=== PATIENT | male | born 1995 | race Caucasian/White ===

== ENCOUNTER 2019-10-04 14:12 | Emergency (ER) | payer MEDICAID, SELFPAY ==
[2019-10-04 14:14] VITALS: BP 138/68; PULSE 89; RESP 16; TEMP 36.6; O2SAT 98; BMI 25.2
--- NOTE | 2019-10-04 14:40 | ED.VIS.GEN ---
History of Present Illness Chief Complaint: General Illness Informant: Patient Onset: Days - 3 Narrative: Presents with 3 to 4-day history of cough congestion and rhinorrhea, his cough is not becoming slightly productive. He is a smoker. He has no fever chills. He has no abdominal pain. He is worried about bronchitis Past Medical History - Allergies and Home Meds Allergies/Adverse Reactions: Allergies No Known Allergies Allergy (Verified 10/04/19 14:16) Primary Care Physician: NOT,DEFINED [Primary Care Provider] - Past Medical History: None Smoking Status: Current every day smoker Review of Systems General: Denies: Fever Eyes: Denies: Visual changes - bilaterally ENT: Reports: Rhinorrhea, Sore throat Cardiovascular: Denies: Chest pain Respiratory: Reports: Cough, Sputum. Denies: Dyspnea Gastrointestinal: Reports: Abdominal pain Genitourinary: Denies: Dysuria Musculoskeletal: Denies: Myalgias Skin: Denies: Rash Neurological: Denies: Weakness Physical Exam Vital Signs/Narrative: Vital Signs Temp Pulse Resp BP Pulse Ox 10/04/19 14:14 97.8 F 89 16 138/68 H 98 General: Well nourished, Well developed Head: Normocephalic Eyes: Negative for: Pale conjunctiva ENT: Moist mucous membranes, - - He has rhinorrhea, swollen nasal turbinates and postnasal drip but no pharyngeal erythema or exudate Neck: Supple Cardiovascular: Regular rate, Regular rhythm Abdomen: Soft, Nontender Back: Nontender, Normal Inspection Extremities: Nontender, No edema Skin: Normal color Neurological: Alert Psychological: Normal affect Diagnostic/Tx/Re-eval - Medical Decision Making She has clear lungs, this all upper respiratory. He does not meet criteria for antibiotics, he may have early bronchitis which we will treat symptomatically. Discharge stable condition ED Disposition - Plan for ED Patient: Disposition: Home or Assisted Living Diagnosis: Bronchitis Instructions: Acute Bronchitis Prescriptions: Guaifenesin/Pseudoephedrne HCl [Mucinex D ER 600-60 mg Tablet] 1 ea PO BID #6 tab.er.12h Prescription Printed Referrals: NOT,DEFINED [Primary Care Provider] - 3-5 Days
[2019-10-04 15:12] VITALS: PULSE 81; RESP 17; O2SAT 99
== END 2019-10-04 15:13 | disposition home or self-care (01) ==
PROVIDERS: Emergency Provider Emergency Medicine
DX: J20.9 Acute bronchitis, unspecified (principal); R10.9 Unspecified abdominal pain; F17.200 Nicotine dependence, unspecified, uncomplicated
CPT/HCPCS: 99282

== ENCOUNTER 2019-11-22 13:04 | Emergency (ER) | payer MEDICAID, SELFPAY ==
[2019-11-22 13:04] VITALS: BP 131/82; PULSE 66; RESP 16; TEMP 36.8; O2SAT 98; BMI 22.3
[2019-11-22 13:57] LABS: Absolute Lymphocyte Count 1.88 X10^3/uL (0.83-4.51); Absolute Neutrophil Count 4.8 X10^3/uL (2.0-7.7); Basophil# 0.05 X10^3/uL; Basophil% 0.7 % (0-1); Eosinophil# 0.19 X10^3/uL; Eosinophils% 2.5 % (0-5); Hematocrit 45.6 % (40-54); Hemoglobin 15.4 g/dL (13.0-16.5); Lymphocyte # 1.88 X10^3/ul (4.0); Lymphocyte % 24.9 % (19-41); Mean Corp Hgb Conc 33.8 g/dL (32-36); Mean Corpuscular Hgb 32.2 pg (27.0-32.0); Mean Corpuscular Volume 95.4 fL (80-94); Mean Platelet Vol. 9.5 fl (6.2-12.0); Monocyte# 0.59 X10^3/uL; Monocyte% 7.8 % (0-10); NRBC Flagged by Analyzer 0 % (0-5); Neutrophil # 4.79 X10^3/uL (2.7-7.7); Neutrophil % 63.6 % (47-70); Platelet Count 332 K/mm3 (150-450); RBC Distribution Width CV 12.2 % (11.6-14.6); RBC Distribution Width SD 43.3 fl (35.1-43.9); Red Blood Count 4.78 M/mm3 (4.6-6.2); White Blood Count 7.5 K/mm3 (4.4-11.0)
[2019-11-22 14:09] LABS: ALB/GLOB Ratio 1.2 RATIO (0.9-2.4); AST(SGOT) 15 U/L (15-37); Alanine Aminotransfer ALT/SGPT 21 U/L (16-61); Alkaline Phosphatase 88 U/L (45-117); Anion Gap 0 (5-15); BUN 14 mg/dL (7-18); BUN/Creat Ratio 13.2 RATIO (10-20); Calcium,Total 8.7 mg/dL (8.5-10.1); Chloride 109 mmol/L (98-107); Creatinine, Serum 1.06 mg/dL (0.70-1.30); EST Glomerular Filtration Rate 91 mL/min (>60); Est Glom Filt Rate - Afr Amer 110 mL/min (>60); Estimated Creatinine Clearance 110.35 ml/min; Globulin 3.3 g/dL (2.2-4.2); Glucose 87 mg/dL (74-106); Potassium 4.3 mmol/L (3.5-5.1); Protein, Total 7.3 g/dL (6.4-8.2); Sodium Level 140 mmol/L (136-145)
[2019-11-22 14:10] LABS: Amphetamine Urine VISTA NEGATIVE (<1000 ng/mL); Barbiturate Urine VISTA NEGATIVE (< 200 ng/mL); Benzodiazepine Urine VISTA NEGATIVE (< 200 ng/mL); Cocaine Urine VISTA NEGATIVE (< 300 ng/mL); Ecstacy Urine VISTA NEGATIVE (< 500 ng/mL); Methadone Urine VISTA NEGATIVE (< 300 ng/mL); PCP Urine VISTA NEGATIVE (< 25 ng/mL); THC Urine VISTA NEGATIVE (< 50 ng/mL); Vista UDS pH Range 5
--- NOTE | 2019-11-22 14:24 | NURSING ---
CALLED [facility], TALKED TO ORLY. HE WILL CALL US BACK
--- NOTE | 2019-11-22 14:28 | NURSING ---
SOMEONE FROM [facility] WILL BE OVER TO ACCESS PATIENT
[2019-11-22 15:15] VITALS: RESP 14
--- NOTE | 2019-11-22 15:20 | ED.DCSUM_ITS ---
- ER Visit Summary Date of Service: 11/22/19 Chief Complaint: [Depression and suicidal ideation] History of Present Illness: The patient is a 24 M presents to the emergency department from group home with complaint of depression. Patient was arrested yesterday for alleged assault. Patient yesterday apparently attempted to kill himself by hanging himself with a [place] tree lights however he had a hard time knotting them. Patient does have history of depression however he ran out of his medications about 3 or 4 days ago. Patient's last admission to psychiatric facility it was about 3 to 4 months ago. Patient states that he is chronically depressed. He denies any auditory or visual hallucinations. Patient was brought in by police and pink slipped. Patient was evaluated at the group home by crisis.] Physical Examination: [HEENT-PERRLA, EOMI. Cranial nerves II through XII grossl y intact. TMs clear. Mucous membranes moist. No adenopathy. Cardiovascular-regular rate and rhythm without murmur or ectopy Lungs-clear to auscultation, chest wall stable without crepitus or subcu emphysema Abdomen-normoactive bowel sounds, soft, nontender, no rebound or rigidity, no peritoneal signs. Extremities-intact ?4, normal range of motion, normal pulses, atraumatic] Test Results: [CBC with it was normal. Chemistries unremarkable. Toxicology screen was negative alcohol screen was negative. Signs were normal.] Emergency Department Course and Treatment: [Patient was seen by crisis in the department.] Treatment Plan: [pLan will be to arrange transfer to psychiatric facility.] Disposition: [Transfer to psychiatric facility] Impression: [Depression Suicidal ideation] This note was generated with [employer] dictation software. It may contain incorrect words, spelling, and punctuation that were not noted in review of the chart prior to signing ED Disposition - Plan for ED Patient: Referrals: Care Physician,No Primary [Primary Care Provider] -
[2019-11-22 16:53] VITALS: BP 125/72; PULSE 56; RESP 16; O2SAT 100
[2019-11-22 16:54] VITALS: BP 125/72; PULSE 56; RESP 16; O2SAT 100
== END 2019-11-22 17:00 ==
PROVIDERS: Emergency Provider Emergency Medicine
DX: F32.9 Major depressive disorder, single episode, unspecified (principal); R45.851 Suicidal ideations; Z72.0 Tobacco use; Z79.899 Other long term (current) drug therapy
CPT/HCPCS: 80053; 80307; 80320; 85025; 99285; G0480

== ENCOUNTER 2020-02-29 17:26 | Emergency (ER) | payer MEDICAID, SELFPAY ==
[2020-02-29 17:26] VITALS: BP 136/67; PULSE 62; RESP 16; TEMP 36.4; O2SAT 97; BMI 24.5
[2020-02-29 18:10] LABS: Absolute Lymphocyte Count 1.82 X10^3/uL (0.83-4.51); Absolute Neutrophil Count 4.1 X10^3/uL (2.0-7.7); Basophil# 0.03 X10^3/uL; Basophil% 0.5 % (0-1); Eosinophil# 0.05 X10^3/uL; Eosinophils% 0.8 % (0-5); Hematocrit 43.3 % (40-54); Hemoglobin 14.6 g/dL (13.0-16.5); Lymphocyte # 1.82 X10^3/ul (4.0); Lymphocyte % 27.5 % (19-41); Mean Corp Hgb Conc 33.7 g/dL (32-36); Mean Corpuscular Hgb 31.6 pg (27.0-32.0); Mean Corpuscular Volume 93.7 fL (80-94); Mean Platelet Vol. 9.5 fl (6.2-12.0); Monocyte# 0.56 X10^3/uL; Monocyte% 8.5 % (0-10); NRBC Flagged by Analyzer 0 % (0-5); Neutrophil # 4.12 X10^3/uL (2.7-7.7); Neutrophil % 62.2 % (47-70); Platelet Count 334 K/mm3 (150-450); RBC Distribution Width CV 12.7 % (11.6-14.6); RBC Distribution Width SD 43.9 fl (35.1-43.9); Red Blood Count 4.62 M/mm3 (4.6-6.2); White Blood Count 6.6 K/mm3 (4.4-11.0)
[2020-02-29 18:18] LABS: Anion Gap 7 (5-15); BUN 14 mg/dL (7-18); BUN/Creat Ratio 13.5 RATIO (10-20); Calcium,Total 8.7 mg/dL (8.5-10.1); Chloride 103 mmol/L (98-107); Creatinine, Serum 1.04 mg/dL (0.70-1.30); EST Glomerular Filtration Rate 93 mL/min (>60); Est Glom Filt Rate - Afr Amer 112 mL/min (>60); Estimated Creatinine Clearance 116.65 ml/min; Glucose 103 mg/dL (74-106); Potassium 3.6 mmol/L (3.5-5.1); Sodium Level 135 mmol/L (136-145)
[2020-02-29 18:32] LABS: Amphetamine Urine VISTA NEGATIVE (<1000 ng/mL); Barbiturate Urine VISTA NEGATIVE (< 200 ng/mL); Benzodiazepine Urine VISTA NEGATIVE (< 200 ng/mL); Cocaine Urine VISTA NEGATIVE (< 300 ng/mL); Ecstacy Urine VISTA NEGATIVE (< 500 ng/mL); Methadone Urine VISTA NEGATIVE (< 300 ng/mL); PCP Urine VISTA NEGATIVE (< 25 ng/mL); THC Urine VISTA POSITIVE (< 50 ng/mL); Vista UDS pH Range 6
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
--- NOTE | 2020-02-29 18:45 | ED.VISSUMM ---
- ER Visit Summary Date of Service: 02/29/20 Chief Complaint: Depression with suicidal ideation History of Present Illness: The patient is a 24 M history of being more depressed. Patient is a history of bipolar disorder. States he is contemplating suicide. He is considering hanging himself. He has had at least 2 prior attempts in the past with hanging himself. He also had another prior attempt with an overdose. He denies any actual attempt this time. He does go to the counseling center. Physical Examination: Young male vital signs stable afebrile. Currently calm and collected. Cooperative with exam. He is not acting out. HEENT exam unremarkable. Pupils are unreactive light. Neck nontender. No signs of trauma. Lungs clear to auscultation bilaterally. Heart regular rhythm no murmur. Abdomen soft nontender normal bowel sounds no peritoneal signs. Extremities moves all 4. Calves nontender no edema. No signs of track mir or injuries to his upper or lower extremities. Back nontender. Neurologically is awake alert with no focal motor deficits. Test Results: CBC normal. White count of 6. Chemistries unremarkable gap of 7. Tox screen positive for cannabis only. Alcohol at 69 he is not intoxicated. Emergency Department Course and Treatment: Young male with bipolar disorder with increasing depression and suicidal ideation. He has had prior attempts. I had him also evaluated by the social media director who agrees that he needs admission. She is working on placement. Treatment Plan: [] Disposition: Placement of psychiatric facility. Impression: Acute on chronic depression Suicidal ideation with prior attempts Acute exacerbation of bipolar disorder This note was generated with [employer] dictation software. It may contain incorrect words, spelling, and punctuation that were not noted in review of the chart prior to signing ED Disposition - Plan for ED Patient: Referrals: Care Physician,No Primary [Primary Care Provider] -
--- NOTE | 2020-02-29 19:17 | CM.ED ---
Social Work Telephone call to Nikia Ferguson, Intake. Referral made. There are open beds and they do accept patient insurance. Clinical information faxed, pending review. Janny CHOW, GEO
[2020-02-29 20:00] VITALS: RESP 18
--- NOTE | 2020-02-29 20:24 | CM.ED ---
Social Work Telephone call to Quiana Mason. Quiana confirming to have received referral and the the referral is currently under review. Janny Nunn MSW, GEO
[2020-02-29 21:00] VITALS: RESP 16
--- NOTE | 2020-02-29 21:16 | CM.ED ---
[facility] Admitting Doctor: Dr. Toth. Nurse to Nurse report to call: [phone]. Patient to admit to [address] [place] [address]. Updated patient, medical team, and patient friend Daysi on plan. [place] slip faxed. Janny CHOW, AJIT
[2020-02-29 21:53] VITALS: BP 134/72; PULSE 65; RESP 18
--- NOTE | 2020-03-01 00:43 | NURSING ---
pt's home medication bottles found on unit. kei @ [facility] was notified. she will ask pt for contact information of someone who could come to [facility] to pick them up. if he ins unable to provide contact information, she will advise him to pick the medications up when he is discharged from [facility].
== END 2020-02-29 22:27 ==
PROVIDERS: Emergency Provider Emergency Medicine
DX: F31.9 Bipolar disorder, unspecified (principal); R45.851 Suicidal ideations; Z91.5 Personal history of self-harm; Z72.0 Tobacco use; Z79.899 Other long term (current) drug therapy
CPT/HCPCS: 80048; 80307; 80320; 85025; 99283; G0480

== ENCOUNTER 2020-03-16 15:53 | Emergency (ER) | payer MEDICAID, SELFPAY ==
[2020-03-16 15:54] VITALS: BP 145/96; PULSE 87; RESP 18; TEMP 36.1; O2SAT 97; BMI 23.7
--- NOTE | 2020-03-16 16:02 | ED.VIS.GEN ---
History of Present Illness Chief Complaint: Dental Informant: Patient Onset: Yesterday Context: Gradual Onset Timing: Continuous Current Severity: Moderate Maximum Severity: Moderate Narrative: Patient is a 24-year-old male that presents to the emergency department dental pain and facial swelling. He states 2 days ago, he began have some pain in his right upper jaw. He states he noticed today, that his right cheek was swollen. He denies fevers or chills. He denies trouble speaking or swallowing. He is otherwise been in his normal state of health. Prior similar symptoms: No Recent Illness/Hospitalization: No Past Medical History - Allergies and Home Meds Allergies/Adverse Reactions: Allergies No Known Allergies Allergy (Verified 03/16/20 15:54) Primary Care Physician: Care Physician,No Primary [Primary Care Provider] - Prior records reviewed: Yes Past Medical History: - - Bipolar disorder Surgical History: noncontributory Smoking Status: Smoker, status unknown Review of Systems General: Denies: Chills, Fever, Sweats Eyes: Denies: Visual changes - bilaterally, Diplopia ENT: Denies: Rhinorrhea, Sore throat Cardiovascular: Denies: Chest pain, Palpitations Respiratory: Denies: Dyspnea, Cough, Dyspnea on exertion Gastrointestinal: Denies: Abdominal pain, Nausea, Vomiting, Diarrhea, Melena, Hematochezia Genitourinary: Denies: Dysuria, Hematuria, Frequency Musculoskeletal: Denies: Back pain, Extremity Pain Skin: Denies: Rash, Wounds Neurological: Denies: Headache, Weakness, Numbness Physical Exam Vital Signs/Narrative: Vital Signs Temp Pulse Resp BP Pulse Ox 03/16/20 15:54 96.9 F L 87 18 145/96 H 97 Inital Vital Signs reviewed: Yes General: Well nourished, Well developed, No Acute Distress Head: Normocephalic, Atraumatic Eyes: Perrl, EOMI ENT: Moist mucous membranes, No rhinorrhea, - - There is focal abscess over tooth #3. There is some mild facial edema. There is no purulence. There is no trismus or stridor. Neck: Supple, Nontender Cardiovascular: Regular rate, Regular rhythm, No murmurs Respiratory: No distress, CTA bilaterally, Chest nontender Abdomen: Soft, Nontender, Nondistended, Normal bowel sounds Back: Nontender, Normal Inspection Extremities: Nontender, No edema Skin: Normal color, No rash Neurological: Alert, Oriented x3, Cranial nerves II-XII grossly intact, Normal Strength, Normal Sensation Psychological: Normal affect, Normal Mood Diagnostic/Tx/Re-eval - Medical Decision Making The patient has large cavity with abscess of tooth. There is nothing that would benefit from primary I&D. There is no trismus or stridor. There is no evidence of Javier angina. The patient will be started on Augmentin. He was given outpatient dental resources. He will be discharged home. Impression 1. Dental abscess tooth #3 ED Disposition - Plan for ED Patient: Instructions: ED Dental Abscess with Facial Cellulitis Prescriptions: Amox/Clavulanate Tablet [Augmentin Tablet] 875 mg PO Q12H #20 tab Prescription Printed Referrals: Care Physician,No Primary [Primary Care Provider] -
[2020-03-16] MEDS: HYDROcodone Bitartrate/Apap 5/325 Tablet PO (16:09)
[2020-03-16] MEDS: Amox/Clavulanate 875 MG Tablet PO (16:10)
== END 2020-03-16 16:16 | disposition home or self-care (01) ==
LOC: ED 16:14
PROVIDERS: Emergency Provider Emergency Medicine
DX: K04.7 Periapical abscess without sinus (principal); K02.9 Dental caries, unspecified; F31.9 Bipolar disorder, unspecified; F17.200 Nicotine dependence, unspecified, uncomplicated; Z79.899 Other long term (current) drug therapy
CPT/HCPCS: 99283

== ENCOUNTER 2020-03-26 20:54 | Emergency (ER) | payer MEDICAID, SELFPAY ==
[2020-03-26 20:55] VITALS: BP 143/80; PULSE 88; RESP 18; TEMP 36.3; O2SAT 97; BMI 25.8
[2020-03-26 21:45] LABS: Absolute Lymphocyte Count 2.86 X10^3/uL (0.83-4.51); Absolute Neutrophil Count 4.8 X10^3/uL (2.0-7.7); Basophil# 0.07 X10^3/uL; Basophil% 0.8 % (0-1); Eosinophil# 0.33 X10^3/uL; Eosinophils% 3.8 % (0-5); Hemoglobin 14.8 g/dL (13.0-16.5); Lymphocyte # 2.86 X10^3/ul (4.0); Lymphocyte % 32.6 % (19-41); Mean Corp Hgb Conc 34.4 g/dL (32-36); Mean Corpuscular Volume 92.9 fL (80-94); Mean Platelet Vol. 9.3 fl (6.2-12.0); Monocyte# 0.69 X10^3/uL; Monocyte% 7.9 % (0-10); NRBC Flagged by Analyzer 0 % (0-5); Neutrophil # 4.76 X10^3/uL (2.7-7.7); Neutrophil % 54.1 % (47-70); Platelet Count 362 K/mm3 (150-450); RBC Distribution Width CV 11.7 % (11.6-14.6); RBC Distribution Width SD 39.8 fl (35.1-43.9); Red Blood Count 4.63 M/mm3 (4.6-6.2); White Blood Count 8.8 K/mm3 (4.4-11.0)
[2020-03-26 21:55] LABS: Anion Gap 3 (5-15); BUN 17 mg/dL (7-18); BUN/Creat Ratio 16.8 RATIO (10-20); Calcium,Total 8.7 mg/dL (8.5-10.1); Chloride 107 mmol/L (98-107); Creatinine, Serum 1.01 mg/dL (0.70-1.30); EST Glomerular Filtration Rate 96 mL/min (>60); Est Glom Filt Rate - Afr Amer 116 mL/min (>60); Estimated Creatinine Clearance 120.12 ml/min; Glucose 86 mg/dL (74-106); Potassium 4.2 mmol/L (3.5-5.1); Sodium Level 138 mmol/L (136-145)
[2020-03-26 22:16] LABS: Alcohol, Blood (Medical)-Serum < 3.0 mg/dL
[2020-03-26 22:23] LABS: Amphetamine Urine VISTA NEGATIVE (<1000 ng/mL); Barbiturate Urine VISTA NEGATIVE (< 200 ng/mL); Benzodiazepine Urine VISTA NEGATIVE (< 200 ng/mL); Cocaine Urine VISTA NEGATIVE (< 300 ng/mL); Ecstacy Urine VISTA NEGATIVE (< 500 ng/mL); Methadone Urine VISTA NEGATIVE (< 300 ng/mL); PCP Urine VISTA NEGATIVE (< 25 ng/mL); THC Urine VISTA NEGATIVE (< 50 ng/mL); Vista UDS pH Range 7
--- NOTE | 2020-03-26 22:41 | ED.VISSUMM ---
- ER Visit Summary Date of Service: 03/26/20 Chief Complaint: Suicidal ideation History of Present Illness: The patient is a 24 M presenting with suicidal ideation. Patient states this started yesterday. He states he does not have a job and is homeless. He has been homeless for the past year. He has history of previous suicide attempts with hanging. He has thought about jumping off a bridge. He states he is taking his depression medications. He goes to the counseling center. Denies other complaints. Physical Examination: Vitals are stable. Patient is afebrile. Alert no acute distress. HEENT exam is unremarkable. Neck is supple. Lungs are clear and equal bilaterally. Heart is regular rate and rhythm. Abdomen is soft nontender nondistended. Extremities are unremarkable. Skin is warm and dry. No focal neurologic deficit. Depressed affect, suicidal ideation Remainder of exam is unremarkable. Emergency Department Course and Treatment: CBC, chemistries unremarkable. Tox is negative. Alcohol negative. Discussed with the counseling center for evaluation. Disposition: Per counseling center Impression: Suicidal ideation This note was generated with [employer] dictation software. It may contain incorrect words, spelling, and punctuation that were not noted in review of the chart prior to signing ED Disposition - Plan for ED Patient: Referrals: Care Physician,No Primary [Primary Care Provider] -
--- NOTE | 2020-03-26 22:58 | ED.RN ---
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
[2020-03-26 23:11] VITALS: RESP 15
[2020-03-27] VITALS (10 sets, daily range): BP systolic 124–141; BP diastolic 74–87; PULSE 50–103; RESP 14–18; TEMP 36.6; O2SAT 97–99
--- NOTE | 2020-03-27 05:24 | ED.RN ---
[facility] IS ACCEPTING THIS PT, PENDING COVID SCREEN AND PINK SLIP FAXED BACK
[2020-03-27] MEDS: busPIRone 5 MG Tablet 10 MG PO (05:42)
--- NOTE | 2020-03-27 07:14 | NURSING ---
CALLED [facility] ABOUT BED PLACEMENT. HAD TO LEAVE A MESSAGE
--- NOTE | 2020-03-27 07:32 | ED.RN ---
called for breakfst tray. pt resting no distress noted. sitter at bedside.
--- NOTE | 2020-03-27 08:32 | NURSING ---
ACCEPTED AT [facility]
--- NOTE | 2020-03-27 08:39 | ED.RN ---
attempted to call report, nurse unavailable and to return call.
--- NOTE | 2020-03-27 09:04 | NURSING ---
308A REPORT [phone] PHYSICANS ETA IS 2 HRS
--- NOTE | 2020-03-27 09:38 | NURSING ---
CANCELED [facility]YSIC[facility] CALLED JUANITO FITZPATRICK, ETA IS FROM [facility]
== END 2020-03-27 10:04 ==
LOC: ED 03-27 02:32
PROVIDERS: Emergency Provider Emergency Medicine
DX: F31.9 Bipolar disorder, unspecified (principal); R45.851 Suicidal ideations; Z59.0 Homelessness; Z72.0 Tobacco use; Z91.5 Personal history of self-harm
CPT/HCPCS: 80048; 80307; 80320; 85025; 99284; G0480